=== PATIENT | female | born 1935 | race Caucasian/White ===

== ENCOUNTER 2017-03-23 06:31 | Inpatient (IN) | payer MEDICARE ==
[2017-03-21 10:34] LABS: HEMATOCRIT 37.2 % (34.6-47.8); HEMOGLOBIN 12.1 g/dL (11.7-16.4); WHITE BLOOD COUNT 8.2 x10^3/uL (3.4-10)
[2017-03-21 10:45] LABS: BLOOD UREA NITROGEN 24 mg/dL (7-18)
[2017-03-22 11:32] VITALS: BP 132/83
[~2017-03-23] VITALS: Ht 160 cm; Wt 74.7 kg
[~2017-03-23 06:31] MED LIST: AMLO5TAB2 PO; ANTI1CAP PO; CALC-451 PO; LATA2.5D3 EACHEYE; METHOTREXATE PO; QUIN1TAB PO; VITA1TAB19 PO; cloniDINE/PF 100 MCG/ML, 10 ML ONE
[2017-03-23] MEDS ORDERED: VANCOMYCIN PER PHARMACY MC STA (06:50)
[2017-03-23] MEDS ORDERED: OxyconTIN ER 10 MG TAB.ER ONE (07:12)
[2017-03-23] MEDS ORDERED: LIDOCAINE 1%, 2ML ONE (07:13)
[2017-03-23] MEDS ORDERED: SCOPOLAMINE PATCH, 1.5MG PATCH.TD72 TD ONE ×3 (07:13→13:00)
[2017-03-23] MEDS ORDERED: ACETAMINOPHEN 500 MG TABLET ONE (07:13)
[2017-03-23] MEDS ORDERED: LACTATED RINGERS 1,000 ML IV SCH (07:16)
[2017-03-23] MEDS ORDERED: NAPR220T77 PO (07:24)
[2017-03-23] MEDS ORDERED: VANCOMYCIN 1,300 MG in SODIUM CHLORIDE 0.9% 250 ML IV ONE (07:30)
[2017-03-23] MEDS ORDERED: LIDOCAINE 1%, 2ML SQ PRN (07:30)
[2017-03-23] MEDS ORDERED: FAMOTIDINE 40 MG TABLET PO SCH (07:30)
[2017-03-23] MEDS ORDERED: MIDAZOLAM 1 MG/ML, 2ML ONE ×2 (07:47→09:16)
[2017-03-23] MEDS ORDERED: ONDANSETRON 2MG/ML, 2ML ONE ×2 (07:48→09:16)
[2017-03-23] MEDS ORDERED: PROPOFOL 10 MG/ML, 20ML ONE ×2 (07:48→09:16)
[2017-03-23] MEDS ORDERED: DEXAMETHASONE 4 MG/ML, 1ML ONE ×2 (07:48→09:16)
[2017-03-23] MEDS ORDERED: FENTANYL PF 100 MCG/2ML ONE ×2 (07:48)
[2017-03-23] MEDS ORDERED: CEFAZOLIN 1,000 MG ONE ×2 (07:48→09:16)
[2017-03-23] MEDS ORDERED: BUPIVACAINE/PF 0.25% ONE (07:49)
[2017-03-23] MEDS ORDERED: LIDOCAINE-MPF 2% ,5ML ONE (07:49)
[2017-03-23] MEDS: OxyconTIN ER 10 MG TAB.ER PO SCH ×2 (08:08→20:39)
[2017-03-23] MEDS ORDERED: ACETAMINOPHEN 500 MG TABLET PO PRN (08:30)
[2017-03-23] MEDS ORDERED: ROPIvacaine/PF 0.5%, 30 ML ONE (09:08)
[2017-03-23] MEDS ORDERED: KETOROLAC 60 MG/2 ML ONE (09:08)
[2017-03-23] MEDS ORDERED: TRANEXAMIC ACID 100 MG/ML, 10ML ONE ×2 (09:08)
[2017-03-23] MEDS ORDERED: SODIUM CHLORIDE 0.9% 100 ML ONE (09:09)
[2017-03-23] MEDS ORDERED: EPINEPHRINE 1 MG/ML, 1ML ONE (09:09)
[2017-03-23] MEDS ORDERED: PHENYLEPHRINE 10 MG/ML ONE (09:16)
[2017-03-23] MEDS ORDERED: HYDROmorphone 1 MG/ML, 1ML ONE ×2 (09:16→09:42)
[2017-03-23] MEDS ORDERED: KETAMINE 10 MG/ML, 20ML ONE ×2 (09:16→09:33)
[2017-03-23] MEDS ORDERED: ACETAMINOPHEN 650 MG/20.3 ML UDC PO PRN (09:30)
[2017-03-23] MEDS ORDERED: ONDANSETRON 4 MG TABLET PO PRN (09:30)
[2017-03-23] MEDS ORDERED: ZOLPIDEM 5MG TABLET PO PRN (09:30)
[2017-03-23] MEDS ORDERED: HYDROmorphone 1 MG/ML, 1ML IV PRN (09:30)
[2017-03-23] MEDS ORDERED: MAGNESIUM HYDROXIDE 8%, 30ML UDC PO PRN (09:30)
[2017-03-23] MEDS ORDERED: ONDANSETRON 2MG/ML, 2ML IV PRN (09:30)
[2017-03-23] MEDS ORDERED: HYDROcodone/APAP 5/325 TABLET PO PRN (09:30)
[2017-03-23] MEDS ORDERED: BISACODYL 10 MG SUPP PR PRN (09:30)
[2017-03-23] MEDS ORDERED: SENNA/DOCUSATE TABLET PO PRN (09:30)
[2017-03-23] MEDS ORDERED: DIPHENHYDRAMINE 25 MG CAPSULE PO PRN (09:30)
[2017-03-23] MEDS ORDERED: MIDAZOLAM 1 MG/ML, 2ML IV PRN (10:00)
[2017-03-23] MEDS ORDERED: FENTANYL PF 100 MCG/2ML IV PRN (10:00)
[2017-03-23] MEDS ORDERED: LORazepam 2 MG/ML, 1ML IVPush PRN (10:00)
[2017-03-23] MEDS ORDERED: ONDANSETRON 2MG/ML, 2ML IVPush PRN (10:00)
[2017-03-23] MEDS ORDERED: OXYcodone 5 MG/5 ML ORAL.SOL UDC PO PRN (10:00)
[2017-03-23] MEDS ORDERED: LABETALOL 5MG/ML, 20ML IV PRN (10:00)
[2017-03-23] MEDS ORDERED: DIAZEPAM 5 MG/ML, 2ML IVPush PRN (10:00)
[2017-03-23] MEDS ORDERED: MEPERIDINE/PF 25MG/0.5ML IVPush PRN (10:00)
[2017-03-23] MEDS ORDERED: ALBUTEROL/IPRATROPIUM 2.5MG/0.5MG, 3 ML NPPB PRN (10:00)
[2017-03-23] MEDS ORDERED: hydrALAzine 20 MG/ML, 1ML IV PRN (10:00)
[2017-03-23] MEDS ORDERED: PROMETHAZINE 25 MG/ML, 1ML IV PRN (10:00)
[2017-03-23] MEDS: HYDROmorphone 2 MG/ML, 1ML IV PRN ×2 (12:02→12:21)
[2017-03-23] MEDS: OXYcodone IR 5MG TABLET PO PRN (12:21)
[2017-03-23 15:57] VITALS: BP 90/52
[2017-03-23] MEDS: NS + 20MEQ KCL 1,000 ML IV SCH ×2 (17:27→22:30)
[2017-03-23] MEDS: CEFAZOLIN PMX 2GM/50ML 50 ML IVPB SCH (17:35)
[2017-03-23 20:20] VITALS: BP 98/63
[2017-03-23] MEDS: DOCUSATE 100 MG CAPSULE PO SCH (20:39)
[2017-03-23] MEDS: ASPIRIN 81 MG TABLET EC PO SCH (20:40)
[2017-03-23] MEDS ORDERED: LATANOPROST OPHTH 0.005%, 2.5ML EACHEYE SCH (21:00)
[2017-03-24 00:31] VITALS: BP 94/60
[2017-03-24] MEDS: OXYcodone IR 5MG TABLET PO PRN ×3 (00:40→11:20)
[2017-03-24] MEDS: CEFAZOLIN PMX 2GM/50ML 50 ML IVPB SCH (01:44)
[2017-03-24] MEDS: HYDROmorphone 2 MG/ML, 1ML IV PRN (03:19)
[2017-03-24 04:06] VITALS: BP 104/57
[2017-03-24 05:17] LABS: HEMOGLOBIN 9.1 g/dL (11.7-16.4)
[2017-03-24] MEDS ORDERED: DEXAMETHASONE 4 MG/ML, 1ML IVPush SCH (06:00)
[2017-03-24] MEDS: ASPIRIN 81 MG TABLET EC PO SCH (06:45)
[2017-03-24] MEDS ORDERED: OXYC5TAB2 PO (07:54)
[2017-03-24] MEDS ORDERED: TRAM50TA2 PO (07:55)
[2017-03-24] MEDS ORDERED: MELO7.5T31 PO (07:56)
[2017-03-24] MEDS ORDERED: ONDA4TAB7 PO (07:56)
[2017-03-24 08:09] VITALS: BP 111/68
[2017-03-24] MEDS: OxyconTIN ER 10 MG TAB.ER PO SCH (08:14)
[2017-03-24] MEDS: DOCUSATE 100 MG CAPSULE PO SCH (08:14)
[2017-03-24 08:44] VITALS: BP 105/57
[2017-03-24] MEDS ORDERED: HYDROCHLOROTHIAZIDE PO SCH (09:00)
[2017-03-24] MEDS ORDERED: QUINAPRIL PO SCH (09:00)
[2017-03-24] MEDS ORDERED: QUINAPRIL 20MG TABLET PO SCH (09:00)
[2017-03-24] MEDS ORDERED: [UNRECOGNIZED DRUG - OTHER] PO SCH (09:00)
[2017-03-24] MEDS ORDERED: AMLODIPINE 5 MG TABLET PO SCH (09:00)
[2017-03-24] MEDS ORDERED: HYDROCHLOROTHIAZIDE 12.5 MG CAPSULE PO SCH (09:00)
[2017-03-24] MEDS: NS + 20MEQ KCL 1,000 ML IV SCH (11:00)
[2017-03-24 11:17] VITALS: BP 116/61
== END 2017-03-24 12:10 | disposition home or self-care (01) | DRG 470 ==
LOC: ORIP 06:31 → 4NOR 11:33
PROVIDERS: ADMIT Orthopaedic Surgery; ATTEND Orthopaedic Surgery
PROC: 0SRD0J9 Replacement of Left Knee Joint with Synthetic Substitute, Cemented, Open Approach (ICD-10-PCS; principal; 2017-03-23 09:40)
DX: M17.12 Unilateral primary osteoarthritis, left knee (principal); N17.9 Acute kidney failure, unspecified
CPT/HCPCS: 36415; 80048; 83036; 85014; 85018; 85025; 85610; 85730; 87081; 87147; 93005; C1713; J0171; J0690; J1100; J1170; J1885; J2250; J2405; J2704; J2795; J3010; J3370; J3480; J3490; C1776; J0735; J2370; J7050; J7120